=== PATIENT | male | born 1975 | race Caucasian/White ===

== ENCOUNTER 2020-05-20 17:08 | Inpatient (IN) | payer OTHER ==
[2020-05-20 18:03] VITALS: BMI 27.5
--- NOTE | 2020-05-20 18:43 | HP ---
COWS - Scale Resting Pulse: 0= [place] 80 or Below Sweatin= Chills/Flushing Restless Observation: 3= Extraneous Movement Pupil Size: 0= Normal to Room Light Bone or Joint Aches: 2= Severe Diffuse Aches Runny Nose/ Eye Tearin= Runny Nose/Eyes GI Upset > 30mins: 2= Nausea/Diarrhea Tremor Observation: 0= None Yawning Observation: 1= 1-2x During Session Anxiety or Irritability: 1=Feels Anxious/Irritable Goose Flesh Skin: 0=Smooth Skin COWS Score: 12 CIWA Score - Admission Criteria OASAS Guidelines: Admission for Medically Managed Detox: Requires at least one of the followin. CIWA greater than 12 2. Seizures within the past 24 hours 3. Delirium tremens within the past 24 hours 4. Hallucinations within the past 24 hours 5. Acute intervention needed for co occurring medical disorder 6. Acute intervention needed for co occurring psychiatric disorder 7. Severe withdrawal that cannot be handled at a lower level of care (continued vomiting, continued diarrhea, abnormal vital signs) requiring intravenous medication and/or fluids 8. Admission ROS S - HPI Chief Complaint: " I want to get back to where I was before" Allergies/Adverse Reactions: Allergies Allergy/AdvReac Type Severity Reaction Status Date / Time No Known Allergies Allergy Verified 05/20/20 18:56 History of Present Illness: 44 y.o. male requesting detox from heroin use , reports 12-15 bags/day since 3 mo ago , prior to which he was in [facility] x 26 months, MDD 130 mg, stopped going to the program and relapsed . Latest use was yesterday 4 bags heroin and 2 bags cocaine via IV in UE , denies abscess or endocarditis, OD x 2 mos t recently 2015 . First age of use 30 for heroin , cocaine since age 27 . Obtains needles from the needle exchange . etoh - occasional use cannabis- denies cocaine w/d seizure once tobacco : 1 ppd PMHX : hep C dx 2006 ( RF= IVDU ) s/p tx 2018 w/ [facility] , had liver biopsy per pt nl PSHX : denies PSych : denies Meds : denies Allergies : NKDA 2 children : ages 4 & 22 Search Terms: kathy florian, 1975Search Date: 05/20/2020 18:35:18 PM The Drug Utilization Report below displays all of the controlled substance prescriptions, if any, that your patient has filled in the last twelve months. The information displayed on this report is compiled from pharmacy submissions to the Department, and accurately reflects the information as submitted by the pharmacies. This report was requested by: Renata Lima | Reference #: [id number] There are no results for the search terms that you entered. Exam Limitations: Clinical Condition - Review of Systems Constitutional: Chills, Loss of Appetite, Night Sweats, Unintentional Wgt. Loss (240 to 192 lbs since 3 mo ago) EENT: reports: No Symptoms Reported, Nose Congestion, Other (reading glasses) Respiratory: reports: No Symptoms reported Cardiac: reports: No Symptoms Reported GI: reports: Diarrhea, Poor Appetite : reports: No Symptoms Reported Musculoskeletal: reports: Back Pain, Muscle Pain Integumentary: reports: See HPI, Dryness Neuro: reports: No Symptoms reported Endocrine: reports: No Symptoms Reported Hematology: reports: Anemia Psychiatric: reports: Orientated x3 (denies SI / HI) Patient History - Smoking Cessation Smoking history: Current every day smoker Have you smoked in the past 12 months: Yes Hx Chewing Tobacco Use: No Initiated information on smoking cessation: Yes 'Breaking Loose' booklet given: 05/20/20 - Substances abused Heroin Substance route: Injection Frequency: Daily Amount used: 12 to 15 bags Age of first use: 30 Date of last use: 05/19/20 Cocaine Substance route: Injection Frequency: Daily Amount used: 12 bags Age of first use: 30 Date of last use: 05/19/20 Alcohol Substance route: Oral Frequency: 3-6 times per week Amount used: 2 beers Age of first use: 23 Date of last use: 05/17/20 Admission Physical Exam BHS - Vital Signs Vital Signs: Vital Signs - 24 hr 05/20/20 18:00 Temperature 97.2 F L Pulse Rate 54 L Respiratory 18 Rate Blood Pressure 117/48 L - Physical General Appearance: Yes: Disheveled, Mild Distress, Anxious HEENTM: Yes: EOMI, Hearing grossly Normal, Normocephalic, Normal Voice, Scleral Ictenus R, Scleral Ictenus L, Nasal Congestion, Rhinorrhea Respiratory: Yes: Chest Non-Tender, Lungs Clear, No Respiratory Distress, No Accessory Muscle Use Neck: Yes: No masses,lesions,Nodules, Trachea in good position Cardiology: Yes: Regular Rhythm, Regular Rate, S1, S2, Bradycardia (chronic @ baseline per pt used to play a lot of sports ( baseball, basketball, football)) Abdominal: Yes: Normal Bowel Sounds, Non Tender, Soft Back: Yes: Normal Inspection Musculoskeletal: Yes: Gait Steady Extremities: Yes: Other (right thumb deformity and flexion limitation , h/o staph infection) Neurological: Yes: Fully Oriented, Alert, Motor Strength 5/5, Normal Mood/Affect Integumentary: Yes: Warm, Track [place] (ashley UE R >> left , c/d/i), Other ( ashley forearms scars from remote self - injuries ( cutting ) , R thumb scar , diffuse macular dryness dorsum of both hands , elbows , lumbar with descuamation and hypopigmentation) - Diagnostic (1) Opioid use disorder Current Visit: Yes Status: Acute (2) Cocaine use disorder Current Visit: Yes Status: Chronic (3) Nicotine dependence Current Visit: Yes Status: Chronic Qualifiers: Nicotine product type: cigarettes Breathalyzer - Breathalyzer Breathalyzer: 0 Urine Drug Screen - Test Device Lot number: [id number] Expiration date: 12/11/21 - Control Is test valid?: Yes - Results Drug screen NEGATIVE: No Urine drug screen results: JEAN CLAUDE-Cocaine, FEN-Fentanyl, MOP-Opiates Inpatient Rehab Admission - Rehab Decision to Admit Inpatient rehab admission?: No
[2020-05-20] MEDS ORDERED: IBUPROFEN 400 MG TABLET (FP) PO PRN (18:57)
[2020-05-20] MEDS ORDERED: NICOTINE POLACRILEX 2 MG GUM BUC PRN (18:57)
[2020-05-20] MEDS ORDERED: MAGNESIUM CITRATE 300 ML BOTTLE PO PRN (18:57)
[2020-05-20] MEDS ORDERED: ACETAMINOPHEN 325 MG TABLET (FP) PO PRN ×2 (18:57)
[2020-05-20] MEDS ORDERED: MAG HYDROX/AL HYDROX/SIMETH 30 ML UNIT-DOSE CUP PO PRN (18:57)
[2020-05-20] MEDS ORDERED: MAGNESIUM HYDROX 2400MG/30ML ORAL SUSPENSION 30 ML CUP PO PRN (18:57)
[2020-05-20] MEDS ORDERED: MENTHOL/PHENOL 1 EACH UD MM PRN (18:57)
[2020-05-20] MEDS ORDERED: BISMUTH SUBSALICYLATE 524 MG/30 ML UD PO PRN (18:57)
[2020-05-20] MEDS ORDERED: METHADONE HCL 10 MG TABLET (FOR DETOX USE ONLY) PO ONE (19:00)
[2020-05-20] MEDS: THIAMINE HCL 100 MG TABLET (FP) PO SCH (21:00)
[2020-05-20] MEDS: MELATONIN 5 MG TABLETS PO SCH (21:00)
--- NOTE | 2020-05-21 09:02 | EKG ---
Test Reason : Blood Pressure : / mmHG Vent. Rate : 042 BPM Atrial Rate : 042 BPM P-R Int : 158 ms QRS Dur : 090 ms QT Int : 456 ms P-R-T Axes : 030 015 038 degrees QTc Int : 380 ms MARKED SINUS BRADYCARDIA ABNORMAL ECG NO PREVIOUS ECGS AVAILABLE Confirmed by MD CELIA, MELONY ([id number]) on 05/21/2020 9:01:58 AM Referred By: Confirmed By:MELONY YANG MD
[2020-05-21] MEDS ORDERED: METHADONE (DETOX) 20 MG, METHADONE (DETOX) 5 MG PO ONE (10:00)
[2020-05-21] MEDS ORDERED: METHADONE HCL 5 MG TABLET (FOR DETOX USE ONLY) ONE (10:03)
[2020-05-21] MEDS ORDERED: METHADONE HCL 10 MG TABLET (FOR DETOX USE ONLY) ONE (10:03)
[2020-05-21 10:31] LABS: HEMOGLOBIN 13.1 GM/dL (11.7-16.9); MCH 28.3 pg (25.7-33.7); MCHC 33.7 g/dl (32.0-35.9); MEAN CELL VOLUME 84.1 fl (80-96); MEAN PLT VOLUME 8.6 fl (7.5-11.1); PLATELET COUNT 246 K/MM3 (134-434); RBC 4.63 M/mm3 (4.00-5.60); RDW 13.1 % (11.9-15.9); WHITE BLOOD COUNT 8.5 K/mm3 (4.0-10.0)
[2020-05-21] MEDS: METHOCARBAMOL 500 MG TABLET PO PRN (10:48)
[2020-05-21] MEDS: PRENATAL VITAMINS W/ FOLIC ACID TABLET (FP) PO SCH (10:49)
[2020-05-21 10:50] LABS: POTASSIUM 3.8 mmol/L (3.5-5.1)
[2020-05-21 11:10] LABS: ALBUMIN 3.5 g/dl (3.4-5.0); BILIRUBIN,TOTAL 0.7 mg/dL (0.2-1); BLOOD UREA NITROGEN 8.1 mg/dL (7-18); CREATININE 0.7 mg/dL (0.55-1.3); TOT PROT 7.6 g/dl (6.4-8.2)
[2020-05-21] MEDS ORDERED: IBUPROFEN 600 MG TABLET (FP) PO ONE (12:10)
--- NOTE | 2020-05-21 12:14 | PN ---
BHS COWS - Scale Resting Pulse: 0= [place] 80 or Below Sweatin= Chills/Flushing Restless Observation: 0= Sits Still Pupil Size: 1= Pupils >than Normal Bone or Joint Aches: 2= Severe Diffuse Aches Runny Nose/ Eye Tearin= Nasal Congestion GI Upset > 30mins: 0= None Tremor Observation of Outstretched Hands: 0= None Yawning Observation: 0= None Anxiety or Irritability: 1=Feels Anxious/Irritable Goose Flesh Skin: 3=Piloerection COWS Score: 9 BHS Progress Note (SOAP) Subjective: 44 years old male was admitted on 05/20/20 for opiate withdrawal sx management treating with methadone detox regiment general body aches running nose motrin 600mg po x 1 Objective: 05/21/20 12:50 Vital Signs - 24 hr 05/20/20 05/20/20 05/20/20 18:00 19:36 19:42 Temperature 97.2 F L 97.2 F L Pulse Rate 54 L 54 L Respiratory 18 18 Rate Blood Pressure 117/48 L 117/48 L O2 Sat by Pulse 100 Oximetry (%) 05/20/20 05/21/20 05/21/20 21:02 06:31 08:33 Temperature 97.3 F L 98.0 F 97.6 F Pulse Rate 90 75 68 Respiratory 20 18 18 Rate Blood Pressure 131/87 131/69 123/66 O2 Sat by Pulse 98 96 Oximetry (%) Laboratory Tests 05/21/20 05/21/20 05/21/20 07:45 07:45 07:45 WBC 8.5 RBC 4.63 Hgb 13.1 Hct 39.0 MCV 84.1 MCH 28.3 MCHC 33.7 RDW 13.1 Plt Count 246 MPV 8.6 Sodium 138 Potassium 3.8 Chloride 103 Carbon Dioxide 29 Anion Gap 7 L BUN 8.1 Creatinine 0.7 Est GFR (CKD-EPI)AfAm 134.91 Est GFR (CKD-EPI)NonAf 116.40 Random Glucose 106 Calcium 9.0 Total Bilirubin 0.7 AST 30 ALT 43 Alkaline Phosphatase 91 Total Protein 7.6 Albumin 3.5 Syphilis Serology Non-reactive 05/21/20 12:50 covid pending Assessment: 05/21/20 12:50 opiate withdrawal Plan: methadone regiment
[2020-05-21] MEDS ORDERED: TRIMETHOBENZAMIDE HCL 200MG/2ML INJ IM ONE (23:13)
[2020-05-21] MEDS: MELATONIN 5 MG TABLETS PO SCH (23:38)
[2020-05-21] MEDS: THIAMINE HCL 100 MG TABLET (FP) PO SCH (23:38)
[2020-05-22] MEDS ORDERED: TRIMETHOBENZAMIDE HCL 200MG/2ML INJ IM PRN (08:37)
[2020-05-22] MEDS ORDERED: METHADONE HCL 10 MG TABLET (FOR DETOX USE ONLY) PO ONE (10:00)
[2020-05-22] MEDS: METHOCARBAMOL 500 MG TABLET PO PRN ×2 (10:10→18:00)
[2020-05-22] MEDS: PRENATAL VITAMINS W/ FOLIC ACID TABLET (FP) PO SCH (10:10)
--- NOTE | 2020-05-22 11:56 | PN ---
S COWS - Scale Resting Pulse: 0= [place] 80 or Below Sweatin= No chills or Flushing Restless Observation: 1= Difficult to Sit Still Pupil Size: 1= Pupils >than Normal Bone or Joint Aches: 2= Severe Diffuse Aches Runny Nose/ Eye Tearin= Runny Nose/Eyes GI Upset > 30mins: 3= Vomiting/Diarrhea Tremor Observation of Outstretched Hands: 2= Slight Tremor Visible Yawning Observation: 1= 1-2x During Session Anxiety or Irritability: 2=Irritable/Anxious Goose Flesh Skin: 0=Smooth Skin COWS Score: 14 [facility] Progress Note (SOAP) Subjective: alert,irritable,anxious,interrupted sleep,tremor,pain in the body and back Objective: 05/22/20 16:24 Vital Signs Temperature 98.4 F 05/22/20 14:00 Pulse Rate 49 L 05/22/20 14:00 Respiratory Rate 18 05/22/20 14:00 Blood Pressure 138/69 05/22/20 14:00 O2 Sat by Pulse Oximetry (%) 97 05/22/20 12:30 Laboratory 05/20/20 05/21/20 05/21/20 23:00 07:45 07:45 WBC 8.5 K/mm3 K/mm3 (4.0-10.0) RBC 4.63 M/mm3 M/mm3 (4.00-5.60) Hgb 13.1 GM/dL GM/dL (11.7-16.9) Hct 39.0 % % (35.4-49) MCV 84.1 fl fl (80-96) MCH 28.3 pg pg (25.7-33.7) MCHC 33.7 g/dl g/dl (32.0-35.9) RDW 13.1 % % (11.9-15.9) Plt Count 246 K/MM3 K/MM3 (134-434) MPV 8.6 fl fl (7.5-11.1) Sodium Potassium Chloride Carbon Dioxide Anion Gap BUN Creatinine Est GFR (CKD-EPI)AfAm Est GFR (CKD-EPI)NonAf Random Glucose Calcium Total Bilirubin AST ALT Alkaline Phosphatase Total Protein Albumin Syphilis Serology Non-reactive (NONREACTIVE) COVID-19 ([facility]) Not detected (Not Detected) 05/21/20 07:45 WBC RBC Hgb Hct MCV MCH MCHC RDW Plt Count MPV Sodium 138 mmol/L mmol/L (136-145) Potassium 3.8 mmol/L mmol/L (3.5-5.1) Chloride 103 mmol/L mmol/L (98-107) Carbon Dioxide 29 mmol/L mmol/L (21-32) Anion Gap 7 MMOL/L L MMOL/L (8-16) BUN 8.1 mg/dL mg/dL (7-18) Creatinine 0.7 mg/dL mg/dL (0.55-1.3) Est GFR (CKD-EPI)AfAm 134.91 Est GFR (CKD-EPI)NonAf 116.40 Random Glucose 106 mg/dL mg/dL (74-106) Calcium 9.0 mg/dL mg/dL (8.5-10.1) Total Bilirubin 0.7 mg/dL mg/dL (0.2-1) AST 30 U/L U/L (15-37) ALT 43 U/L U/L (13-61) Alkaline Phosphatase 91 U/L U/L (45-117) Total Protein 7.6 g/dl g/dl (6.4-8.2) Albumin 3.5 g/dl g/dl (3.4-5.0) Syphilis Serology COVID-19 ([facility]) 05/22/20 16:25 Laboratory Last Values WBC 8.5 K/mm3 (4.0-10.0) 05/21/20 07:45 RBC 4.63 M/mm3 (4.00-5.60) 05/21/20 07:45 Hgb 13.1 GM/dL (11.7-16.9) 05/21/20 07:45 Hct 39.0 % (35.4-49) 05/21/20 07:45 MCV 84.1 fl (80-96) 05/21/20 07:45 MCH 28.3 pg (25.7-33.7) 05/21/20 07:45 MCHC 33.7 g/dl (32.0-35.9) 05/21/20 07:45 RDW 13.1 % (11.9-15.9) 05/21/20 07:45 Plt Count 246 K/MM3 (134-434) 05/21/20 07:45 MPV 8.6 fl (7.5-11.1) 05/21/20 07:45 Sodium 138 mmol/L (136-145) 05/21/20 07:45 Potassium 3.8 mmol/L (3.5-5.1) 05/21/20 07:45 Chloride 103 mmol/L (98-107) 05/21/20 07:45 Carbon Dioxide 29 mmol/L (21-32) 05/21/20 07:45 Anion Gap 7 MMOL/L (8-16) L 05/21/20 07:45 BUN 8.1 mg/dL (7-18) 05/21/20 07:45 Creatinine 0.7 mg/dL (0.55-1.3) 05/21/20 07:45 Est GFR (CKD-EPI)AfAm 134.91 05/21/20 07:45 Est GFR (CKD-EPI)NonAf 116.40 05/21/20 07:45 Random Glucose 106 mg/dL (74-106) 05/21/20 07:45 Calcium 9.0 mg/dL (8.5-10.1) 05/21/20 07:45 Total Bilirubin 0.7 mg/dL (0.2-1) 05/21/20 07:45 AST 30 U/L (15-37) 05/21/20 07:45 ALT 43 U/L (13-61) 05/21/20 07:45 Alkaline Phosphatase 91 U/L (45-117) 05/21/20 07:45 Total Protein 7.6 g/dl (6.4-8.2) 05/21/20 07:45 Albumin 3.5 g/dl (3.4-5.0) 05/21/20 07:45 Syphilis Serology Non-reactive (NONREACTIVE) 05/21/20 07:45 COVID-19 ([facility]) Not detected (Not Detected) 05/20/20 23:00 Assessment: 05/22/20 16:25 withdrawal symptom Plan: continue detox methadone regimen,add valium 10 mgs po q 4hrs prn for severe withdrawal for 72 hrs,tigan 200 mg im q8hrs prn for nuasea and vomiting
[2020-05-22] MEDS: MELATONIN 5 MG TABLETS PO SCH (22:43)
[2020-05-22] MEDS: THIAMINE HCL 100 MG TABLET (FP) PO SCH (22:43)
[2020-05-23] MEDS ORDERED: METHADONE HCL 10 MG TABLET (FOR DETOX USE ONLY) ONE (08:33)
[2020-05-23] MEDS ORDERED: METHADONE HCL 5 MG TABLET (FOR DETOX USE ONLY) ONE (08:34)
--- NOTE | 2020-05-23 09:36 | PN ---
BHS COWS - Scale Resting Pulse: 0= [place] 80 or Below Restless Observation: 0= Sits Still Pupil Size: 0= Normal to Room Light Bone or Joint Aches: 1= Mild Discomfort Runny Nose/ Eye Tearin= None GI Upset > 30mins: 1= Stomach Cramp Tremor Observation of Outstretched Hands: 0= None Yawning Observation: 0= None Anxiety or Irritability: 0= None BHS Progress Note (SOAP) Subjective: Pt requesting to leave today, states "I gotta get out of this place", he will not elaborate Objective: 05/23/20 09:33 PE Gnl: WDWN, in no distress MS: slightly irritable, nl language function Motor: intact Gait: steady Laboratory Tests 05/20/20 05/21/20 05/21/20 23:00 07:45 07:45 WBC 8.5 RBC 4.63 Hgb 13.1 Hct 39.0 MCV 84.1 MCH 28.3 MCHC 33.7 RDW 13.1 Plt Count 246 MPV 8.6 Sodium Potassium Chloride Carbon Dioxide Anion Gap BUN Creatinine Est GFR (CKD-EPI)AfAm Est GFR (CKD-EPI)NonAf Random Glucose Calcium Total Bilirubin AST ALT Alkaline Phosphatase Total Protein Albumin Syphilis Serology Non-reactive COVID-19 ([facility]) Not detected 05/21/20 07:45 WBC RBC Hgb Hct MCV MCH MCHC RDW Plt Count MPV Sodium 138 Potassium 3.8 Chloride 103 Carbon Dioxide 29 Anion Gap 7 L BUN 8.1 Creatinine 0.7 Est GFR (CKD-EPI)AfAm 134.91 Est GFR (CKD-EPI)NonAf 116.40 Random Glucose 106 Calcium 9.0 Total Bilirubin 0.7 AST 30 ALT 43 Alkaline Phosphatase 91 Total Protein 7.6 Albumin 3.5 Syphilis Serology COVID-19 ([facility]) Home Medication List Medication Instructions Recorded Confirmed Type NK [No Known Home Medication] 05/20/20 05/20/20 History Active Medications Generic Name Dose Route Start Last Admin Trade Name Freq PRN Reason Stop Dose Admin Acetaminophen 650 mg 05/20/20 18:57 Tylenol - PO Q6H PRN PAIN LEVEL 4 - 6 Acetaminophen 650 mg 05/20/20 18:57 Tylenol - PO Q6H PRN FEVER Al Hydroxide/Mg Hydroxide 30 ml 05/20/20 18:57 Mylanta Oral Suspension - PO Q6H PRN DYSPEPSIA Bismuth Subsalicylate 524 mg 05/20/20 18:57 Pepto-Bismol - PO Q1H PRN DIARRHEA Eucalyptus/Menthol/Phenol/Sorbitol 1 each 05/20/20 18:57 Cepastat Lozenge - MM 05/26/20 18:58 Q4H PRN SORE THROAT Ibuprofen 400 mg 05/20/20 18:57 Motrin - PO Q6H PRN PAIN LEVEL 1 - 3 Magnesium Citrate 300 ml 05/20/20 18:57 Citroma - PO Q48H PRN CONSTIPATION Magnesium Hydroxide 30 ml 05/20/20 18:57 Milk Of Magnesia - PO PRN PRN CONSTIPATION Melatonin 5 mg 05/20/20 22:00 05/22/20 22:43 Melatonin PO 5 mg HS ARPIT Administration Methadone HCl 10 mg/ Methadone 15 mg 05/23/20 10:00 HCl 5 mg PO 05/23/20 10:01 ONCE ONE Methadone HCl 5 mg 05/24/20 10:00 Dolophine - PO 05/24/20 10:01 ONCE@0600 ONE Methocarbamol 500 mg 05/20/20 18:57 05/22/20 18:00 Robaxin - PO 05/26/20 18:58 500 mg Q6H PRN Administration MUSCLE SPASMS Nicotine Polacrilex 2 mg 05/20/20 18:57 Nicorette Gum - BUC Q2H PRN NICOTINE REPLACEMENT RX Multivit/Folic Acid/Iron 1 tab 05/21/20 10:00 05/22/20 10:10 Vitamins (Sjr) - PO 1 tab DAILY ARPIT Administration Thiamine HCl 100 mg 05/20/20 22:00 05/22/20 22:43 Vitamin B1 - PO 100 mg HS ARPIT Administration Trimethobenzamide HCl 200 mg 05/22/20 08:37 05/22/20 09:24 Tigan Injection - IM 200 mg Q8H PRN Administration NAUSEA AND/OR VOMITING Vital Signs Temperature 97.4 F L 05/23/20 08:50 Pulse Rate 58 L 05/23/20 08:50 Respiratory Rate 18 05/23/20 08:50 Blood Pressure 142/69 05/23/20 08:50 O2 Sat by Pulse Oximetry (%) 96 05/22/20 20:29 Assessment: 05/23/20 09:34 1. Opiate use disorder 2. Pt wants to leave, however, he agreed to stay one more day Plan: 1. Pt agrees to stay with the following modification to the methadone protocol, 15 mg today and 5 mg tomorrow prior to discharge
[2020-05-23] MEDS ORDERED: METHADONE (DETOX) 10 MG, METHADONE (DETOX) 5 MG PO ONE (10:00)
[2020-05-23] MEDS: PRENATAL VITAMINS W/ FOLIC ACID TABLET (FP) PO SCH (10:06)
[2020-05-23] MEDS: METHOCARBAMOL 500 MG TABLET PO PRN (10:07)
[2020-05-23 13:11] VITALS: BP 128/64; PULSE 73; TEMP 97.5
--- NOTE | 2020-05-23 13:23 | DS ---
[facility] Detox Discharge Summary Admission Date: 05/20/20 Discharge Date: 05/23/20 - History Present History: Opioid Dependence - Physical Exam Results Vital Signs: Vital Signs Temperature 97.5 F L 05/23/20 13:00 Pulse Rate 73 05/23/20 13:00 Respiratory Rate 18 05/23/20 13:00 Blood Pressure 128/64 05/23/20 13:00 O2 Sat by Pulse Oximetry (%) 98 05/23/20 13:00 Pertinent Admission Physical Exam Findings: PE Gnl: WDWN, in no distress MS: nl mentation Motor: nl Gait: steady Laboratory Tests 05/20/20 05/21/20 05/21/20 23:00 07:45 07:45 WBC 8.5 RBC 4.63 Hgb 13.1 Hct 39.0 MCV 84.1 MCH 28.3 MCHC 33.7 RDW 13.1 Plt Count 246 MPV 8.6 Sodium Potassium Chloride Carbon Dioxide Anion Gap BUN Creatinine Est GFR (CKD-EPI)AfAm Est GFR (CKD-EPI)NonAf Random Glucose Calcium Total Bilirubin AST ALT Alkaline Phosphatase Total Protein Albumin Syphilis Serology Non-reactive COVID-19 ([facility]) Not detected 05/21/20 07:45 WBC RBC Hgb Hct MCV MCH MCHC RDW Plt Count MPV Sodium 138 Potassium 3.8 Chloride 103 Carbon Dioxide 29 Anion Gap 7 L BUN 8.1 Creatinine 0.7 Est GFR (CKD-EPI)AfAm 134.91 Est GFR (CKD-EPI)NonAf 116.40 Random Glucose 106 Calcium 9.0 Total Bilirubin 0.7 AST 30 ALT 43 Alkaline Phosphatase 91 Total Protein 7.6 Albumin 3.5 Syphilis Serology COVID-19 ([facility]) Home Medication List Medication Instructions Recorded Confirmed Type NK [No Known Home Medication] 05/20/20 05/20/20 History Active Medications Generic Name Dose Route Start Last Admin Trade Name Freq PRN Reason Stop Dose Admin Acetaminophen 650 mg 05/20/20 18:57 Tylenol - PO Q6H PRN PAIN LEVEL 4 - 6 Acetaminophen 650 mg 05/20/20 18:57 Tylenol - PO Q6H PRN FEVER Al Hydroxide/Mg Hydroxide 30 ml 05/20/20 18:57 Mylanta Oral Suspension - PO Q6H PRN DYSPEPSIA Bismuth Subsalicylate 524 mg 05/20/20 18:57 Pepto-Bismol - PO Q1H PRN DIARRHEA Eucalyptus/Menthol/Phenol/Sorbitol 1 each 05/20/20 18:57 Cepastat Lozenge - MM 05/26/20 18:58 Q4H PRN SORE THROAT Ibuprofen 400 mg 05/20/20 18:57 Motrin - PO Q6H PRN PAIN LEVEL 1 - 3 Magnesium Citrate 300 ml 05/20/20 18:57 Citroma - PO Q48H PRN CONSTIPATION Magnesium Hydroxide 30 ml 05/20/20 18:57 Milk Of Magnesia - PO PRN PRN CONSTIPATION Melatonin 5 mg 05/20/20 22:00 05/22/20 22:43 Melatonin PO 5 mg HS ARPIT Administration Methadone HCl 5 mg 05/24/20 06:00 Dolophine - PO 05/24/20 06:01 ONCE@0600 ONE Methocarbamol 500 mg 05/20/20 18:57 05/23/20 10:07 Robaxin - PO 05/26/20 18:58 500 mg Q6H PRN Administration MUSCLE SPASMS Nicotine Polacrilex 2 mg 05/20/20 18:57 Nicorette Gum - BUC Q2H PRN NICOTINE REPLACEMENT RX Multivit/Folic Acid/Iron 1 tab 05/21/20 10:00 05/23/20 10:06 Vitamins (Sjr) - PO 1 tab DAILY ARPIT Administration Thiamine HCl 100 mg 05/20/20 22:00 05/22/20 22:43 Vitamin B1 - PO 100 mg HS ARPIT Administration Trimethobenzamide HCl 200 mg 05/22/20 08:37 05/22/20 09:24 Tigan Injection - IM 200 mg Q8H PRN Administration NAUSEA AND/OR VOMITING Pt prefers to leave today despite attempts to have him stay, he states he wants to see his children. - Treatment Hospital Course: Detox Protocol Followed, Detoxed Safely, Responded well, Discharged Condition Good Patient has Accepted a Rehab Referral to: Pt states he will go to [facility] - Medication Discharge Medications: Ambulatory Orders NK [No Known Home Medication] 05/20/20 - Diagnosis (1) Opioid use disorder Current Visit: Yes Status: Acute - AMA Did Patient Leave Against Medical Advice: No
[2020-05-24] MEDS ORDERED: METHADONE HCL 5 MG TABLET (FOR DETOX USE ONLY) PO ONE ×2 (06:00→10:00)
[2020-05-24] MEDS ORDERED: METHADONE HCL 10 MG TABLET (FOR DETOX USE ONLY) PO ONE (10:00)
[2020-05-25] MEDS ORDERED: METHADONE HCL 5 MG TABLET (FOR DETOX USE ONLY) PO ONE (06:00)
== END 2020-05-23 13:45 | disposition home or self-care (01) | DRG 773 ==
LOC: YASAS 17:08 → Y3N 19:01
PROVIDERS: ADMIT Allergy & Immunology; ATTEND Allergy & Immunology
PROC: HZ2ZZZZ Detoxification Services for Substance Abuse Treatment (ICD-10-PCS; principal; 2020-05-20)
DX: F11.23 Opioid dependence with withdrawal (principal); F14.20 Cocaine dependence, uncomplicated; F10.10 Alcohol abuse, uncomplicated; F17.210 Nicotine dependence, cigarettes, uncomplicated; R00.1 Bradycardia, unspecified; Z86.19 Personal history of other infectious and parasitic diseases
CPT/HCPCS: 36415; 80053; 85027; 86780; 93005; 93010; U0003